=== PATIENT | male | born 1950 | race Caucasian/White ===

== ENCOUNTER → 2018-07-19 | Day surgery (SDC) | payer OTHER ==
[~2018-07-19] MED LIST: ALBUTEROL SULFATE 2.5 MG/3 ML NEBU. NEB PRN; DOXA4TAB2 PO; IPRATRPIUM/ALBUTEROL 0.5/2.5MG 3 ML NEBU. NEB PRN; IV RINGERS SOLUTION,LACTATED 1,000 ML IV SCH; LIDOCAINE 2% PF Vial for OR 5 ML VIAL. ONE; LISI1TAB5 PO; METF750T2 PO; NIFE60TA16 PO; ONDANSETRON PF 4 MG/2 ML VIAL. IV PRN; PROPOFOL 10,000 MCG/ML (20ML) VIAL IV ONE; PROPOFOL 40 ML IV ONE; RACEPINEPHRINE 2.25% 0.5 ML NEBU. NEB PRN
[2018-07-19 14:29] VITALS: BP 126/73
== END | disposition home or self-care (01) ==
LOC: SURG 10:32
PROVIDERS: ATTEND Internal Medicine Gastroenterology
DX: Z12.11 Encounter for screening for malignant neoplasm of colon (principal); K57.30 Diverticulosis of large intestine without perforation or abscess without bleeding; I10 Essential (primary) hypertension; E11.9 Type 2 diabetes mellitus without complications; Z79.899 Other long term (current) drug therapy; Z79.84 Long term (current) use of oral hypoglycemic drugs
CPT/HCPCS: 45378; J2704; G0105; J2001